=== PATIENT | male | born 1995 ===

== ENCOUNTER 2018-03-31 12:19 | Observation (INO) | payer OTHER ==
[~2018-03-31] VITALS: Ht 180.3 cm; Wt 73.4 kg
[2018-03-31 13:09] VITALS: BP 131/81; PULSE 81; TEMP 98.8
[2018-03-31] MEDS ORDERED: GENVOYA TABLET1 EACH PO (15:40)
[2018-03-31 17:02] VITALS: BP 135/83; PULSE 75; TEMP 98.4
[2018-03-31 17:08] LABS: BASO # 0.1 (0.0-0.2); BASO % 0.4 % (0.0-2.0); EOS # 0.5 (0.0-0.7); EOS % 3.4 % (0-4.0); GRAN # 8.8 (1.4-6.5); GRAN % 64.3 % (42.2-75.2); HEMATOCRIT 41.3 % (42.0-52.0); HEMOGLOBIN 14.2 g/dl (13.5-18.0); LYMPH # 2.9 (1.2-3.4); LYMPH % 21.4 % (20.0-51.0); MEAN CELL VOLUME 87 fl (80.0-100.0); MEAN CORPUSCULAR HEMOGLOBIN 30 pg (27.0-31.0); MEAN CORPUSCULAR HGB CONC 34 g/dl (33.0-37.0); MEAN PLATELET VOLUME 9.3 fl (7.4-10.4); MONO # 1.4 (0.1-0.6); MONO % 10.2 % (1.7-9.3); PLATELET COUNT 243 K/mm3 (130-400); RED BLOOD COUNT 4.76 M/mm3 (4.20-5.60); REDCELL DISTRIBUTION WIDTH-CV 13.3 % (11.5-14.5)
[2018-03-31 17:15] LABS: ALBUMIN 3.8 gm/dL (3.5-5.0); BILIRUBIN,TOTAL 0.6 mg/dL (0.0-1.0); CALCIUM 8.6 mg/dL (8.4-10.2); CREATININE, serum 0.94 mg/dL (0.66-1.25); POTASSIUM 3.6 mmol/L (3.4-5.0); TOTAL PROTEIN 6.8 gm/dL (6.4-8.2)
[2018-03-31] MEDS ORDERED: PREDNISONE20 MG (18:05)
[2018-03-31 19:14] VITALS: BP 146/87; PULSE 78; TEMP 98
[2018-04-01] VITALS (10 sets, daily range): BP systolic 111–144; BP diastolic 63–97; PULSE 65–88; TEMP 98.1–98.4
[2018-04-01 09:01] LABS: BASO # 0.1 (0.0-0.2); BASO % 0.5 % (0.0-2.0); EOS # 0.8 (0.0-0.7); EOS % 8.1 % (0-4.0); GRAN # 5.9 (1.4-6.5); HEMATOCRIT 40.3 % (42.0-52.0); HEMOGLOBIN 13.7 g/dl (13.5-18.0); LYMPH # 1.8 (1.2-3.4); LYMPH % 19.2 % (20.0-51.0); MEAN CELL VOLUME 88 fl (80.0-100.0); MEAN CORPUSCULAR HEMOGLOBIN 30 pg (27.0-31.0); MEAN CORPUSCULAR HGB CONC 34 g/dl (33.0-37.0); MEAN PLATELET VOLUME 9.5 fl (7.4-10.4); MONO % 9.9 % (1.7-9.3); PLATELET COUNT 227 K/mm3 (130-400); REDCELL DISTRIBUTION WIDTH-CV 13.4 % (11.5-14.5)
[2018-04-01] MEDS ORDERED: PROTONIX 40MG T40 MG PO (12:27)
== END 2018-04-01 14:50 | disposition home or self-care (01) ==
LOC: SURG 12:19
PROVIDERS: Hospitalist
DX: K29.30 Chronic superficial gastritis without bleeding (principal); K25.9 Gastric ulcer, unspecified as acute or chronic, without hemorrhage or perforation; K92.0 Hematemesis; J18.9 Pneumonia, unspecified organism; B20 Human immunodeficiency virus [HIV] disease; F17.210 Nicotine dependence, cigarettes, uncomplicated; Z79.51 Long term (current) use of inhaled steroids
CPT/HCPCS: G0378; G0379; J2250; J2405; J3010; J7030